=== PATIENT | male | born 1955 | race Caucasian/White ===

== ENCOUNTER 2019-11-10 13:18 | Emergency (ER) | payer MEDICAID, SELFPAY ==
[~2019-11-10] VITALS: Ht 175.3 cm; Wt 75.0 kg
[~2019-11-10 13:18] MED LIST: ACET-2080 PO; IBUP-2275 PO
[2019-11-10] MEDS ORDERED: FLUORESCEIN SODIUM 1 MG STRIP OU ONE (15:15)
[2019-11-10] MEDS ORDERED: NEOMYCIN/BACITRACIN/POLYMYXIN B 3.5 GM OPHTHALMIC OINTMENT OU ONE (15:30)
[2019-11-10 15:37] VITALS: BP 127/75
[2019-11-10] MEDS ORDERED: IBUPROFEN 800 MG TABLET PO ONE (15:45)
== END 2019-11-10 16:16 | disposition home or self-care (01) ==
LOC: EMS 13:18
DX: H10.9 Unspecified conjunctivitis (principal); M19.90 Unspecified osteoarthritis, unspecified site

== ENCOUNTER 2020-04-07 10:03 | Emergency (ER) | payer MEDICAID ==
[~2020-04-07] VITALS: Ht 175.3 cm; Wt 68.2 kg
[2020-04-07 10:11] VITALS: BP 120/74
[2020-04-07] MEDS ORDERED: PERTUSS(ACELL),DIPH,TET VAC/PF 0.5 ML VIAL IM ONE (11:00)
[2020-04-07] MEDS ORDERED: CEPHALEXIN MONOHYDRATE 500 MG CAPSULE PO ONE (11:00)
== END 2020-04-07 11:49 | disposition home or self-care (01) ==
LOC: EMS 10:06
DX: L03.113 Cellulitis of right upper limb (principal)
CPT/HCPCS: 90471; 90715

== ENCOUNTER 2020-04-12 11:52 | Emergency (ER) | payer MEDICAID ==
[~2020-04-12] VITALS: Ht 175.3 cm; Wt 72.7 kg
[2020-04-12] MEDS ORDERED: VANCOMYCIN HCL 1 GM/D5% WATER 200 ML IV ONE (13:15)
[2020-04-12 13:26] LABS: EOSINOPHILS % (AUTO) 2.4 % (1.0-6.0); HEMATOCRIT 36.1 % (41-53); HEMOGLOBIN 12.6 g/dL (13.5-17.5); LYMPHOCYTES # (AUTO) 1.9 K/uL (1.0-4.8); LYMPHOCYTES % (AUTO) 31.7 % (22.0-44.0); MEAN CORPUSCULAR HEMOGLOBIN 30.6 pg (26.0-34.0); MEAN CORPUSCULAR HGB CONC 34.8 G/dL (31.0-37.0); MEAN CORPUSCULAR VOLUME 88 fL (80-100); MONOCYTES # (AUTO) 0.5 K/uL (0.1-1.0); NEUTROPHILS # (AUTO) 3.5 K/uL (1.8-7.7); NEUTROPHILS % (AUTO) 56.9 % (40.0-70.0); PLATELET COUNT (AUTO) 300 K/uL (150-450); RED BLOOD CELL COUNT(AUTO) 4.11 MIL/uL (4.50-5.90); RED CELL DISTRIBUTION WIDTH 13.6 % (11.5-14.5)
[2020-04-12 13:34] LABS: ANION GAP 8 mmol/L (8-16); CALCIUM, TOTAL 8.6 mg/dL (8.8-10.5); CARBON DIOXIDE 28 mmol/L (22-29); CHLORIDE 107 mmol/L (98-107); GLOMERULAR FILTR. RATE CALC > 60 mL/min (>60); GLUCOSE,RANDOM 123 mg/dL (70-110); POTASSIUM 3.6 mmol/L (3.5-5.1); SODIUM SERUM 143 mmol/L (136-145); UREA NITROGEN, BLOOD 20 mg/dL (7-18)
[2020-04-12] MEDS ORDERED: ONDANSETRON HCL 4 MG/2 ML VIAL IVP PRN (13:45)
[2020-04-12] MEDS ORDERED: OxyCODONE HCL/ACETAMINOPHEN 5-325 MG TABLET PO PRN (13:45)
[2020-04-12] MEDS ORDERED: MAGNESIUM HYDROXIDE SUSPENSION 30 ML UDCUP PO PRN (13:45)
[2020-04-12] MEDS ORDERED: MORPHINE SULFATE 2 MG/ML SYRINGE IVP PRN (13:45)
[2020-04-12] MEDS ORDERED: MORPHINE SULFATE 4 MG/ML SYRINGE IVP PRN (13:45)
[2020-04-12] MEDS ORDERED: ACETAMINOPHEN 325 MG TABLET PO PRN (13:45)
[2020-04-12 15:00] VITALS: BP 127/77
[2020-04-13] MEDS ORDERED: VANCOMYCIN HCL 750 MG in DEXTROSE 5%-WATER 250 ML IV SCH ×2
[2020-04-13] MEDS ORDERED: FAMOTIDINE 20 MG TABLET PO SCH (09:00)
== END 2020-04-12 15:17 | disposition left against medical advice (07) ==
LOC: EMS 12:05 → UNDOADMIN 14:36 → 4E 14:36 → UNDODISIN 15:11 → EMS 15:17
DX: Z03.818 Encounter for observation for suspected exposure to other biological agents ruled out (principal); M65.9 Synovitis and tenosynovitis, unspecified
CPT/HCPCS: 36415; 73140; 80048; 85025; 87635; 96365; 99284; J3370; J7060